=== PATIENT | male | born 1955 | race Caucasian/White ===

== ENCOUNTER 2019-05-20 22:48 | Emergency (ER) | payer OTHER ==
[~2019-05-20] VITALS: Ht 182.9 cm; Wt 79.4 kg
== END 2019-05-21 13:18 | disposition left against medical advice (07) ==
LOC: ER 22:48 → CPU-OBS 22:58 → ER 22:58
DX: I48.0 Paroxysmal atrial fibrillation (principal); R07.89 Other chest pain; M79.602 Pain in left arm